=== PATIENT | male | born 2000 | race Caucasian/White ===

== ENCOUNTER 2020-10-29 10:20 | Emergency (ER) | payer OTHER, SELFPAY ==
--- NOTE | ~2020-10-29 | CT_ITS ---
EXAMINATION: CT brain wo con EXAM DATE: 10/29/2020 12:20 INDICATION: Frontal headache for 9 days. TECHNIQUE: Spiral CT of the head was performed without contrast. Axial, coronal and sagittal images were reviewed. The dose-length product (DLP) for this examination was 605.33 mGy-cm. The exposure w as tailored according to patient size, and iterative reconstruction (ASIR) was used as additional dos e reduction technique. There is no prior study for comparison. FINDINGS: There is no acute intraparenchymal hemorrhage. No evidence of intraparenchymal brain mass lesion. No evidence of acute infarction. There is no mass effect or midline shift. The ventricles are normal in size. There are no extra-axial collections. There are no acute calvarial fractures. T he orbits are unremarkable. Soft tissue is unremarkable. The visualized sinuses and mastoid air shannon ls are well aerated. IMPRESSION: 1. No acute intracranial findings. Reviewed, dictated and finalized at location A.
[2020-10-29 10:34] VITALS: BP 150/87; PULSE 67; RESP 18; TEMP 36.7; O2SAT 100
[2020-10-29 11:46] VITALS: BP 137/76; PULSE 62; RESP 14; O2SAT 99
[2020-10-29] MEDS: KETOROLAC 30 MG/ML VIAL (*BKC) IV PUSH (12:48)
[2020-10-29] MEDS: SODIUM CHLORIDE 0.9% IV 1,000 ML 999 ML IV CONT (12:48)
--- NOTE | 2020-10-29 13:42 | ED.GENADULT ---
HPI - General Adult General Chief complaint: Headache <Brent Meehan PA-C - Last Filed: 10/29/20 13:50> Stated complaint: headache 7 days <KEYON Leung Last Filed: 10/29/20 13:50> Time Seen by Provider: 10/29/20 11:31 <Brent Meehan PA-C - Last Filed: 10/29/20 13:50> Source: patient <Brent Meehan PA-C - Last Filed: 10/29/20 13:50> Mode of arrival: ambulatory <Brent Meehan PA-C - Last Filed: 10/29/20 13:50> Limitations: no limitations <Brent Meehan PA-C - Last Filed: 10/29/20 13:50> History of Present Illness HPI narrative: Patient is a 20-year-old male who presents with left-sided frontal headache is a sharp stabbing pain for 8 days main constant throughout the day patient denies injury or trauma or similar occurrence went to an urgent care and has been taking medication with no improvement patient denies recent illness or other complaints and is otherwise in the room in no distress upon arrival and is felt appropriate for outpatient reevaluation <Brent Meehan PA-C - Last Filed: 10/29/20 13:50> Related Data Allergies/adverse reactions: Allergies Allergy/AdvReac Type Severity Reaction Status Date / Time No Known Allergies Allergy Unknown Uncoded 10/29/20 10:40 <Brent Meehan PA-C - Last Filed: 10/29/20 13:50> Review of Systems Review of Systems: All systems reviewed & are unremarkable except as noted in HPI and below <Brent Meehan PA-C - Last Filed: 10/29/20 13:50> PMFSH Social History Social History: Social History Gender identity (if verbalized by the patient): Male <KEYON Leung Last Filed: 10/29/20 13:50> Exam Narrative: Exam Narrative: GENERAL: Well-appearing, well-nourished, and in no acute distress. HEAD: Normocephalic, atraumatic. EYES: PERRLA and EOMI. ENT: Nares clear, no rhinorrhea or epistaxis. Mucous membranes moist. NECK: Supple. No adenopathy or masses. CHEST: Clear to auscultation. No respiratory distress. No wheezes rales or rhonchi HEART: Regular rate and rhythm. No murmur heard. Normal peripheral pulses. EXTREMITIES: Normal range of motion. No edema. SKIN: Warm, dry, no rash. NEURO: No focal deficits. Alert and oriented x3. Cranial nerves II through XII grossly intact. Normal speech. Normal gait PSYCH: Normal mood and affect. <Brent Meehan PA-C - Last Filed: 10/29/20 13:50> Course Course Emergency Course: Patient in the room aware of case findings treatment plan and diagnosis agreeing to follow-up as instructed or to return if symptoms worsen or concerns patient was hydrated and given medications in the emergency department with improvement no high risk changes in the imaging. ABCs and vital signs intact and stable <Brent Meehan PA-C - Last Filed: 10/29/20 13:50> Vital Signs Vital signs: Vital Signs Temperature 98.1 F 10/29/20 10:34 Pulse Rate 67 10/29/20 10:34 Respiratory Rate 18 10/29/20 10:34 Blood Pressure 150/87 H 10/29/20 10:34 Pulse Oximetry 100 10/29/20 10:34 Temperature 98.1 F 10/29/20 10:34 Pulse Rate 62 10/29/20 11:46 Respiratory Rate 14 10/29/20 11:46 Blood Pressure 137/76 10/29/20 11:46 Pulse Oximetry 99 10/29/20 11:46 <Brent Meehan PA-C - Last Filed: 10/29/20 13:50> Vital Signs Temperature 98.1 F 10/29/20 10:34 Pulse Rate 67 10/29/20 10:34 Respiratory Rate 18 10/29/20 10:34 Blood Pressure 150/87 H 10/29/20 10:34 Pulse Oximetry 100 10/29/20 10:34 Temperature 98.1 F 10/29/20 10:34 Pulse Rate 62 10/29/20 11:46 Respiratory Rate 14 10/29/20 11:46 Blood Pressure 137/76 10/29/20 11:46 Pulse Oximetry 99 10/29/20 11:46 <Oralia Gupta MD - Last Filed: 10/29/20 17:33> Medical Decision Making MDM Narrative Medical decision making narrative: Patients headache was not sudden or maximal
== END 2020-10-29 14:08 | disposition home or self-care (01) ==
PROVIDERS: Emergency Provider General Practice; PCP Family Medicine
DX: R51.9 Headache, unspecified (principal)
CPT/HCPCS: 70450; 96361; 96374; 99284; J1885; J7030

== ENCOUNTER 2021-05-07 11:12 | Emergency (ER) | payer BC, SELFPAY ==
--- NOTE | ~2021-05-07 | CT_ITS ---
EXAMINATION: CT soft tissue neck w con DATE: 05/07/2021 13:34 INDICATION: Sore throat, possible peritonsillar abscess TECHNIQUE: Computed tomography (CT) of the neck was performed with 125 cc of Omnipaque 350 intravenou s contrast. The dose-length product (DLP) was 1018.16 mGy-cm. Automated exposure control and iterativ e reconstruction technique were employed. COMPARISON: None FINDINGS: There is slightly suboptimal enhancement of the neck. There appears to be a 2.7 x 2.6 cm ar ea of heterogeneous attenuation in the right peritonsillar region. There is associated minimal mass e ffect on the airway which remains widely patent. There is bilateral cervical lymphadenopathy which is likely reactive. The visualized cervical spine is unremarkable. IMPRESSION: 1. Heterogeneous attenuation in the right peritonsillar region which has the appearance of a phlegmon . 2. Bilateral cervical lymphadenopathy, likely reactive. Reviewed, dictated and finalized at location A. IMPRESSION: 1. Heterogeneous attenuation in the right peritonsillar region which has the ap pearance of a phlegmon. 2. Bilateral cervical lymphadenopathy, likely reactive.
[2021-05-07 11:22] VITALS: BP 136/80; PULSE 104; RESP 18; TEMP 37.5; O2SAT 99
[2021-05-07] MEDS: SODIUM CHLORIDE 0.9% IV 1,000 ML 999 ML IV CONT (12:18)
[2021-05-07 12:22] LABS: Hematocrit 43.1 % (42.0-52.0); Hemoglobin 14.8 g/dL (14.0-18.0); Mean Corpuscular HGB Conc 34.3 g/dl (32-36); Mean Corpuscular Hemoglobin 29.8 pg (26-34); Mean Corpuscular Volume 86.9 fl (80-100); Mean Platelet Volume 9.4 fl (7.4-10.4); Platelet Count Result 116 k/mm3 (150-375); Red Blood Count 4.96 M/mm3 (4.6-6.20); White Blood Count 15.1 K/mm3 (4.5-10.0)
[2021-05-07] MEDS: KETOROLAC 30 MG/ML VIAL (*BKC) IV PUSH (12:28)
[2021-05-07 12:33] LABS: Alanine Aminotransferase 73 U/L (4-50); Albumin Level 4.3 g/dL (3.5-5.1); Alkaline Phosphatase 83 U/L (38-126); Anion Gap 6 mmol/L (8-16); Aspartate Amino Transferase 56 U/L (17-59); Bilirubin,Total 0.6 mg/dL (0.2-1.3); Blood Urea Nitrogen 8 mg/dL (9-20); Calcium 9.1 mg/dL (8.4-10.2); Carbon Dioxide 33 mmol/L (22-30); Chloride 100 mmol/L (98-107); Estimated CRCL calculation 128 ml/min; Estimated Glomerular Filt Rate > 60; Glucose 150 mg/dL (65-110); Potassium 3.8 mmol/L (3.4-5.0); Sodium 139 mmol/L (137-145)
[2021-05-07 13:03] LABS: Band Neutrophils Percent 3 % (0-6); Lymphocytes Absolute Manual 7.55 K/mm3 (1.1-4.5); Monocytes Absolute Manual 0.75 K/mm3 (0.1-0.90); Monocytes Percent Manual 5 % (3-9); Neutrophils Absolute Manual 6.79 K/mm3 (1.3-6.7); Neutrophils Percent Manual 42 % (46-73); Total Cells Counted 100
[2021-05-07 13:04] LABS: Platelet Estimate Adequate (Adequate); Smudge Cells FEW
[2021-05-07 13:14] LABS: Atypical Lymphocytes Present
--- NOTE | 2021-05-07 13:17 | ED.URI ---
HPI - URI/Sore Throat General Chief Complaint: Upper Respiratory Infection Stated Complaint: acute tonsillitis Time Seen by Provider: 05/07/21 11:27 Source: patient, family and RN notes reviewed Mode of arrival: ambulatory Limitations: no limitations History of Present Illness HPI Narrative: This is a 20 year old male who presents for evaluation of sore throat. Patient reports he developed mild sore throat 1 week ago. His throat pain has gradually worsened throughout the week and he was evaluated at an yesterday . He was prescribed Augmentin and tramadol. He has only taken 2 doses of Augmentin so far. This morning he reports has more right ear pain and pain with swallowing. His family states his tonsils seem more swollen. He also reports low grade temperature of 99.7 F at home. He took Motrin prior to arrival. Related Data Allergies Allergy/AdvReac Type Severity Reaction Status Date / Time No Known Allergies Allergy Verified 05/07/21 11:59 Review of Systems Review of Systems: All systems reviewed & are unremarkable except as noted in HPI and below ENT: Reports sore throat Cardiovascular: Cardiovascular: Denies chest pain Respiratory: Respiratory: Denies cough and Denies dyspnea Gastrointestinal: Gastrointestinal: Denies abdominal pain and Denies nausea PMFSH Past Medical History Medical History (Updated 05/07/21 @ 14:55 by Oralia Gupta MD) Patient denies medical problems Surgical History Surgical History (Updated 05/07/21 @ 13:20 by Oralia Gupta MD) No pertinent past surgical history Social History Social History (Updated 05/07/21 @ 13:20 by Oralia Gupta MD) Smoking status: Never smoker Gender identity (if verbalized by the patient): Male Exam Const: General: no acute distress and alert Orientation/consciousness: patient oriented x3 HENMT: Head: normocephalic and atraumatic Ears: TM's normal bilaterally General nose exam: Normal external nose present, Normal nares present and No nasal polyps present Face and sinus: normal facial exam, sinuses nontender and face symmetric Mouth: Yes Normal oral and palatal mucosa present, Yes lip normal and Yes moist mucous membranes Throat: uvula midline and abnormal tonsil on the right erythema and hypertrophy 1+ Eyes: Pupils: Equal, round and reactive pupils present EOM: EOMs intact bilaterally Neck: Neck: lymphadenopathy Chest: Chest palpation & inspection: normal inspection of the chest Resp: Effort & Inspection: normal respiratory effort and no retractions Auscultation: clear to auscultation bilaterally Cardio: Rate: regular rate Rhythm: regular rhythm Heart sounds: no murmurs GI: GI Palp: Yes Soft to palpation, No Tenderness to palpation present (GI) and No Guarding due to palpation present (GI) Auscultation: normal bowel sounds Skin: General skin exam: normal color Rashes: no rashes Neuro: General: patient oriented x3, moves all extremities and CN's II-XI intact bilaterally Extrem: General: normal to inspection and no pedal edema Psych: Mental Status: mental status grossly normal Course Reevaluation(s) Reevaluation #1: I discussed with patient and family that CT shows phlegmon but no abscess at this time. He will continue antibiotics and follow up with ENT on sunday or Sunday. I have discussed return precautions. Date: 05/07/21 Time: 14:53 Vital Signs Vital signs: Vital Signs Temperature 99.5 F 05/07/21 11:22 Pulse Rate 104 H 05/07/21 11:22 Respiratory Rate 18 05/07/21 11:22 Blood Pressure 136/80 05/07/21 11:22 Pulse Oximetry 99 05/07/21 11:22 Temperature 99.5 F 05/07/21 11:22 Pulse Rate 62 05/07/21 16:04 Respiratory Rate 18 05/07/21 16:04 Blood Pressure 136/86 05/07/21 16:04 Pulse Oximetry 99 05/07/21 16:04 MDM - URI/Sore Throat Lab Data Attestation: I reviewed the patient's lab results. Result diagrams: 05/07/21 12:08 05/07/21 12:08
[2021-05-07] MEDS: CLINDAMYCIN 900 MG/D5W 50 ML 900 MG/50 ML PIGGYBACK 50 MG IVPB (14:49)
[2021-05-07 16:04] VITALS: BP 136/86; PULSE 62; RESP 18; O2SAT 99
== END 2021-05-07 16:09 | disposition home or self-care (01) ==
PROVIDERS: Emergency Provider General Practice
DX: J03.90 Acute tonsillitis, unspecified (principal)
CPT/HCPCS: 36415; 70491; 80053; 85025; 86308; 87081; 87880; 96361; 96365; 96372; 96375; 99284; J1100; J1885; J7030; Q9967

== ENCOUNTER 2022-01-10 15:34 | Emergency (ER) | payer BC, SELFPAY ==
[2022-01-10 15:42] VITALS: BP 129/69; PULSE 83; RESP 16; TEMP 36.5; O2SAT 99
--- NOTE | 2022-01-10 16:03 | ED.SKABFB ---
HPI - Skin/Abscess/Foreign Bdy General Chief complaint: Skin/Abscess/Foreign Body Stated complaint: poison fabian Time Seen by Provider: 01/10/22 16:04 Source: patient Mode of arrival: ambulatory Limitations: no limitations History of Present Illness HPI narrative: 21 y/o male presented for c/o severe reaction to poison fabian after exposure 3 days ago. Rash to right arm and abdomen with oozing blisters; endorses spreading on trunk and left arm without blisters. States he has had reactions in the past. Has been taking Benadryl and using OTC cream as needed. Denies pain or significant itching. Denies lip/tongue or throat swelling, sob, or wheezing, dizziness or n/v. MD complaint: rash Related Data Allergies Allergy/AdvReac Type Severity Reaction Status Date / Time No Known Allergies Allergy Verified 01/10/22 16:07 Review of Systems Review of Systems: CONSTITUTIONAL: Denies body aches, fever, chills, or sweats. CARDIOVASCULAR: Denies chest pain, palpitations RESPIRATORY: Denies dyspnea. GASTROINTESTINAL: Denies abdominal pain, nausea, vomiting, or diarrhea. GENITOURINARY: Denies dysuria or hematuria. SKIN: reports rash, itching MUSCULOSKELETAL: Denies back pain, joint pain, or myalgia. NEUROLOGIC: Denies headache, numbness, tingling, or weakness PMFSH Past Medical History Medical History Patient denies medical problems Surgical History Surgical History No pertinent past surgical history Social History Social History Smoking status: Unknown if ever smoked Tobacco type: e-cigarettes/vaping Alcohol intake: current Substance use: never Gender identity (if verbalized by the patient): Male Comments At time of signature, I have reviewed and agree with nursing past medical, surgical, social and family history unless otherwise noted. Please see nursing chart for further information. There is no relevant family history pertinent to the presenting complaint Exam Narrative: GENERAL: Well-appearing EYES: PERRLA, conjunctivae clear, and EOMI. ENT: Mucous membranes moist. Oropharynx without edema, erythema or lesions. CHEST: Clear to auscultation. No respiratory distress. HEART: Regular rate and rhythm. SKIN: Abdomen and right forearm with severe erythematous oozing blisters c/w contact dermatitis, scattered red patches to torso and arms/legs; sparing face NEURO: Alert and oriented x3. Course Course Emergency Course: Patient is aware of diagnosis, understands and agrees to treatment plan. Anticipatory guidance given. Patient agrees to follow-up as directed and is aware of reasons to seek care at the emergency department. Portions of this record may have been created with voice recognition software Level of Care: Express Care Visit Vital Signs Vital signs: Vital Signs Temperature 97.7 F 01/10/22 15:42 Pulse Rate 83 01/10/22 15:42 Respiratory Rate 16 01/10/22 15:42 Blood Pressure 129/69 01/10/22 15:42 Pulse Oximetry 99 01/10/22 15:42 Oxygen Delivery Room Air 01/10/22 15:42 Temperature 97.7 F 01/10/22 15:42 Pulse Rate 83 01/10/22 15:42 Respiratory Rate 16 01/10/22 15:42 Blood Pressure 129/69 01/10/22 15:42 Pulse Oximetry 99 01/10/22 15:42 Oxygen Delivery Room Air 01/10/22 15:42 Reviewed MDM - Skin/Abscess/Foreign Bdy MDM Narrative Medical decision making narrative: IM steroid pepcid and benadryl given. Reports improvement. Does not appear at this time to be erythema multiforme, bullous, SJS, TEN. Patient looks well, nontoxic, no neurologic signs or symptoms; afebrile; no respiratory compromise, appropriate for initial outpatient treatment; discussed the importance of follow-up, patient agrees. Advised supportive measures and Rx antibiotics due to severe reaction and steroid. Instructed raffaele
[2022-01-10] MEDS: diphenhydrAMINE HCl CAP 25 MG CAPSULE 50 MG PO (16:45)
[2022-01-10] MEDS: FAMOTIDINE 20 MG TABLET 40 MG PO (16:46)
[2022-01-10] MEDS: methylPREDNISolone SOD SUCC 125 MG VIAL IM (16:46)
== END 2022-01-10 17:15 | disposition home or self-care (01) ==
PROVIDERS: Emergency Provider Nurse Practitioner Family
DX: L23.9 Allergic contact dermatitis, unspecified cause (principal)
CPT/HCPCS: 96372; 99213; A9270; G0463; J2930